=== PATIENT | male | born 1985 | race Caucasian/White ===

== ENCOUNTER 2021-09-11 14:48 | Emergency (ER) | payer OTHER ==
[~2021-09-11 14:48] MED LIST: AMOXICILLIN500 MG PO; CATAFLAM50 MG PO; HYDROCODONE BIT1 T11 PO; LEVOFLOXACIN500 MG PO; MEDROL DOSEPAK4 MG PO; MOTRIN800 MG PO; NAPROSYN500 MG PO; NKHM; NKHM PO; NORCO 325 MG-51 TAB PO; PERCOCET 325 MG1 TA7 PO; PROVENTIL0.09 MG/AC IH; TRAMADOL HCL50 MG PO; ULTRAM50 MG PO; VIBRAMYCIN100 MG PO; ZITHROMAX Z PA250 MG PO; ZITHROMAX250 MG PO
[2021-09-11 15:08] LABS: BASO # 0.1 10*3/uL (0.0-0.1); BASO % 0.6 % (0.0-1.0); EOS # 0.4 10*3/uL (0.0-0.4); EOS % 2.9 % (1.0-4.0); HEMATOCRIT 42.9 % (42.0-52.0); LYMPH # 2.3 10*3/uL (1.3-4.4); MEAN CELL VOLUME 85.1 fl (80.0-94.0); MEAN PLATELET VOLUME 9.4 fl (9.6-12.3); MONO % 6.6 % (3.0-9.0); NEUT # 10.6 10*3/uL (2.3-7.9); NEUT % 73.4 % (47.0-73.0); PLATELET COUNT AUTOMATED 261 10*3/uL (130-400); RED BLOOD COUNT 5.04 10*6/uL (4.50-5.90); RED CELL DISTRI WIDTH 13.3 % (0-14.5); WHITE BLOOD COUNT 14.4 10*3/uL (4.8-10.8)
[2021-09-11 15:19] LABS: ACT PARTIAL THROMBO TIME 25.7 SECONDS (20.0-32.1)
[2021-09-11 15:24] LABS: ALKALINE PHOSPHATASE 94 U/L (45-117); BUN 10 mg/dl (7-24); CHLORIDE 112 mmol/L (98-107); CREATININE 0.92 mg/dL (0.70-1.30); POTASSIUM 3.8 mmol/L (3.5-5.1); SGOT/AST 22 IU/L (3-35); SGPT/ALT 28 U/L (12-78); SODIUM 142 mmol/L (136-145); TOTAL PROTEIN 7.2 gm/dL (6.4-8.2)
[2021-09-11 18:38] LABS: URINE AMPHETAMINES < 1000 (1000ng/ml); URINE BARBITURATES < 200 (200ng/ml); URINE BENZODIAZEPINES > 200 (200ng/ml); URINE CANNABINOIDS (THC) > 50 (50ng/ml); URINE COCAINE < 300 (300ng/ml); URINE METHADONE < 300 (300ng/ml); URINE OPIATES < 300 (300ng/ml)
[2021-09-11 18:40] LABS: URINE PHENCYCLIDINE < 25 (25ng/ml)
[2021-09-11 19:31] VITALS: BP 138/61
== END 2021-09-11 20:26 | disposition home or self-care (01) ==
LOC: ED 14:48
PROVIDERS: Emergency Medicine
DX: F41.9 Anxiety disorder, unspecified (principal); R07.9 Chest pain, unspecified; R06.02 Shortness of breath; F17.200 Nicotine dependence, unspecified, uncomplicated

== ENCOUNTER 2021-12-22 12:25 | Emergency (ER) | payer OTHER ==
[2021-12-22 16:42] VITALS: BP 127/69
== END 2021-12-22 16:47 ==
LOC: ED 12:25
DX: S09.90XA Unspecified injury of head, initial encounter (principal); M25.561 Pain in right knee; M54.2 Cervicalgia; Z79.2 Long term (current) use of antibiotics; W22.8XXA Striking against or struck by other objects, initial encounter; Y93.89 Activity, other specified; Y92.89 Other specified places as the place of occurrence of the external cause; Y99.9 Unspecified external cause status

== ENCOUNTER 2023-01-09 12:06 | Emergency (ER) | payer MEDICAID ==
[~2023-01-09] VITALS: Ht 182.8 cm; Wt 86.2 kg
[2023-01-09 12:20] VITALS: BP 103/70
[2023-01-09] MEDS ORDERED: BUPRENORPHINE-1 EAC2 SL (12:21)
[2023-01-09] MEDS ORDERED: CEPHALEXIN500 M1 PO (13:29)
== END 2023-01-09 13:36 | disposition home or self-care (01) ==
LOC: ED 12:06
DX: S61.212A Laceration without foreign body of right middle finger without damage to nail, initial encounter (principal); J45.909 Unspecified asthma, uncomplicated; W29.3XXA Contact with powered garden and outdoor hand tools and machinery, initial encounter; Y93.89 Activity, other specified; Y92.89 Other specified places as the place of occurrence of the external cause; Y99.8 Other external cause status; Z98.890 Other specified postprocedural states

== ENCOUNTER 2024-11-17 15:18 | Emergency (ER) | payer MEDICAID ==
[~2024-11-17] VITALS: Ht 177.8 cm; Wt 77.1 kg
[~2024-11-17 15:18] MED LIST changes: +BUPRENORPHINE-1 EAC2 SL; +CEPHALEXIN500 M1 PO
[2024-11-17 15:36] VITALS: BP 138/89
[2024-11-17] MEDS ORDERED: Ketorolac Tromethamine 60 MG/2 ML VIAL IM ONE (15:45)
== END 2024-11-17 18:28 | disposition home or self-care (01) ==
LOC: ED 15:18
DX: S62.201A Unspecified fracture of first metacarpal bone, right hand, initial encounter for closed fracture (principal); Z79.899 Other long term (current) drug therapy; Z53.29 Procedure and treatment not carried out because of patient's decision for other reasons; V09.9XXA Pedestrian injured in unspecified transport accident, initial encounter; Y93.89 Activity, other specified; Y92.488 Other paved roadways as the place of occurrence of the external cause; Y99.8 Other external cause status